=== PATIENT | male | born 1950 ===

== ENCOUNTER → 2021-11-27 | Outpatient (CLI) | payer OTHER ==
[2021-11-27 16:21] LABS: ABSOLUTE RETIC # 114 10e9/uL (24-90); RETICULOCYTE % 2.05 % (0.50-2.40)
[2021-11-27 16:47] LABS: ANISOCYTOSIS SLIGHT; ATYPICAL LYMPHOCYTES 3 %; EOSINOPHILS % (MANUAL) 4 %; LYMPHOCYTES % (MANUAL) 19 %; MONOCYTES % (MANUAL) 6 %; NEUTROPHILS % (MANUAL) 68 %; POIKILOCYTOSIS SLIGHT
== END ==
LOC: LABNPT 16:14
PROVIDERS: ATTEND Internal Medicine Rheumatology
DX: Z01.89 Encounter for other specified special examinations (principal)
CPT/HCPCS: 85007; 85045; 85055

== ENCOUNTER → 2022-11-21 | Outpatient (CLI) | payer MEDICARE, OTHER ==
[2022-11-21 14:48] LABS: CHOLESTEROL 117 MG/DL (< 200); HDL CHOLESTEROL 42 MG/DL (40-60); TRIGLYCERIDES 91 MG/DL (<150); VLDL CHOLESTEROL 18 MG/DL (5-40)
== END ==
LOC: LAB FS 10:36
PROVIDERS: ATTEND Internal Medicine Cardiovascular Disease
DX: I25.10 Atherosclerotic heart disease of native coronary artery without angina pectoris (principal)
CPT/HCPCS: 36415; 80061